=== PATIENT | female | born 1980 | race Caucasian/White ===

== ENCOUNTER 2021-07-07 16:09 | Inpatient (IN) | payer OTHER ==
[~2021-07-07] VITALS: Ht 162.6 cm; Wt 76.7 kg
[2021-07-07] MEDS ORDERED: SODIUM CHLORIDE 0.9% 1000ML BAG (SEPSIS BOLUS) IV ONE (17:00)
[2021-07-07 17:26] LABS: BASOPHILS % 0.4 % (0.0-2.0); EOSINOPHILS % 0.2 % (0.0-5.0); HEMATOCRIT. 37.1 % (36.0-48.0); HEMOGLOBIN. 12.6 g/dL (12.0-16.0); LYMPHOCYTES % 20.2 % (20.0-50.0); MEAN CORPUSCULAR HEMOGLOBIN 27.6 pg (28.0-32.0); MEAN CORPUSCULAR VOLUME 81.1 fL (81.0-99.0); MEAN PLATELET VOLUME 8.8 fl (7.4-10.4); MONOCYTES % 6.2 % (2.0-8.0); PLATELET 295 x1000/uL (130-400); RED BLOOD CELL COUNT 4.58 mill/uL (4.2-5.4)
[2021-07-07 17:33] LABS: CHLORIDE 101 mEq/L (98-107)
[2021-07-07 17:36] LABS: INR 1.1; PROTHROMBIN TIME 11.3 sec (9.6-11.0)
[2021-07-07 17:37] LABS: ETHANOL BLOOD < 10 mg/dL
[2021-07-07 17:40] LABS: HCG SCREEN NEGATIVE
[2021-07-07 17:41] LABS: C REACTIVE PROTEIN QUANT 3.9 mg/L (0.0-3.0)
[2021-07-07 17:42] LABS: CREATINE KINASE 134 IU/L (26-192)
[2021-07-07] MEDS ORDERED: KETOROLAC 15MG/ML VIAL IV NR (19:00)
[2021-07-07 19:37] LABS: CLARITY URINE CLEAR (CLEAR); COLOR URINE YELLOW (YELLOW); KETONES URINE 1+ (NEGATIVE); LEUKOCYTE ESTERASE URINE NEGATIVE (NEGATIVE); NITRITE URINE NEGATIVE (NEGATIVE); OCCULT BLOOD URINE 1+ (NEGATIVE); PH URINE 8.5 (4.5-8.0); PROTEIN URINE NEGATIVE (NEGATIVE); SPECIFIC GRAVITY URINE 1.004 (1.005-1.030); UROBILINOGEN URINE 0.2 E.U./dL (0.2-1.0)
[2021-07-07 20:00] LABS: *AMPHETAMINES SCREEN URINE NEGATIVE (NEGATIVE); *BARBITURATES SCREEN URINE NEGATIVE (NEGATIVE); *BENZODIAZEPINES SCREEN URINE NEGATIVE (NEGATIVE); *COCAINE SCREEN URINE NEGATIVE (NEGATIVE)
[2021-07-07 20:01] LABS: CANNABINOID URINE SCREEN NEGATIVE (NEGATIVE); METHADONE URINE SCREEN NEGATIVE (NEGATIVE); OPIATES URINE SCREEN NEGATIVE (NEGATIVE); PHENCYCLIDINE URINE SCREEN NEGATIVE (NEGATIVE)
[2021-07-07] MEDS ORDERED: IOHEXOL-350 100 ML BOTTLE ONE (20:17)
[2021-07-07] MEDS ORDERED: CEFTRIAXONE 1 G PREMIX 50 ML IV ONE (22:45)
[2021-07-08] MEDS ORDERED: DOCUSATE SODIUM 100MG CAPSULE PO PRN
[2021-07-08] MEDS ORDERED: HYDROCODONE/ACETAMINOPHEN 5/325MG TABLET PO PRN
[2021-07-08] MEDS ORDERED: CEFTRIAXONE 1 G PREMIX 50 ML IV SCH
[2021-07-08] MEDS ORDERED: MAGNESIUM/ALUMINUM HYDROXIDE/SIMETHICONE 30ML UDC PO PRN
[2021-07-08] MEDS ORDERED: CLONIDINE 0.1MG TABLET PO PRN
[2021-07-08] MEDS ORDERED: ACETAMINOPHEN 325MG TABLET PO PRN
[2021-07-08] MEDS ORDERED: HYDROMORPHONE HCL/PF 2MG/ML CPJ IV PRN
[2021-07-08] MEDS ORDERED: ONDANSETRON HCL 4MG/2ML INJ IV PRN
[2021-07-08] MEDS ORDERED: GUAIFENESIN 200MG/10ML SUGAR FREE UDC PO PRN
[2021-07-08] MEDS ORDERED: AZITHROMYCIN 500 MG in DEXT 5% WATER 250 ML IV SCH (01:00)
[2021-07-08 05:39] LABS: BASOPHILS % 0.4 % (0.0-2.0); EOSINOPHILS % 0.9 % (0.0-5.0); HEMATOCRIT. 35.2 % (36.0-48.0); HEMOGLOBIN. 11.6 g/dL (12.0-16.0); MEAN CORPUSCULAR HEMOGLOBIN 27.1 pg (28.0-32.0); MEAN PLATELET VOLUME 8.8 fl (7.4-10.4); MONOCYTES % 8.9 % (2.0-8.0); NEUTROPHILS % 51.8 % (40.0-76.0); PLATELET 261 x1000/uL (130-400); RED BLOOD CELL COUNT 4.29 mill/uL (4.2-5.4); RED CELL DISTRIBUTION WIDTH 15.6 % (11.6-14.6)
[2021-07-08 05:45] LABS: CHLORIDE 109 mEq/L (98-107)
[2021-07-08 05:54] LABS: LDL CHOLESTEROL 116 mg/dL (5-100)
[2021-07-08 05:56] LABS: CREATINE KINASE 112 IU/L (26-192); HDL CHOLESTEROL 36 mg/dL (40-59)
[2021-07-08] MEDS ORDERED: DEXTROSE 50% WATER 50ML SYRINGE IV PRN (08:45)
[2021-07-08] MEDS ORDERED: ASPIRIN 81MG EC TABLET PO SCH (09:00)
[2021-07-08] MEDS ORDERED: METOPROLOL TARTRATE 25MG TABLET PO SCH (09:00)
[2021-07-08] MEDS ORDERED: ENOXAPARIN 40MG/0.4ML SYR SUBCUT SCH (09:00)
[2021-07-08] MEDS: BLOOD SUGAR DIAGNOSTIC STRIP TEST SCH ×3 (11:30→17:20)
[2021-07-08] MEDS ORDERED: NALOXONE HCL 0.4MG/ML VIAL IV PRN (11:45)
[2021-07-08] MEDS: INSULIN LISPRO 100 UNITS/ML SUBCUT SCH ×2 (12:50→17:41)
[2021-07-08] MEDS ORDERED: POTASSIUM CHLORIDE 20MEQ TABLET SR PO NR (13:15)
[2021-07-08 13:40] VITALS: BP 108/77
[2021-07-08 16:00] VITALS: BP 110/70
[2021-07-08 16:44] VITALS: BP 110/70
[2021-07-08 16:57] LABS: CREATINE KINASE 126 IU/L (26-192)
[2021-07-08] MEDS ORDERED: CEFTRIAXONE 1,000 MG in DEXTROSE 5% WATER 50 ML IV SCH (23:45)
[2021-07-09] MEDS ORDERED: AZITHROMYCIN 500 MG in DEXT 5% WATER 250 ML IV SCH (01:00)
== END 2021-07-08 17:50 | disposition home or self-care (01) | DRG 313 ==
LOC: ER 16:09 → MICUSO 22:35 → EDBEDREQTM 22:38 → EDBEDREQ 22:38 → 6WST 07-08 11:37
PROVIDERS: ADMIT Hospitalist; ATTEND Hospitalist
DX: R07.89 Other chest pain (principal); E87.2 Acidosis; E11.9 Type 2 diabetes mellitus without complications; F41.9 Anxiety disorder, unspecified; R00.0 Tachycardia, unspecified; E78.5 Hyperlipidemia, unspecified
CPT/HCPCS: 36415; 71045; 71275; 80053; 80061; 80305; 80320; 81003; 82550; 82728; 82962; 83036; 83605; 83615; 83735; 83880; 84145; 84484; 84703; 85025; 85379; 85384; 86140; 86850; 86900; 87077; 93005; 93306; 93970; 99285; J0456; J0696; J1650; J1885; J7030; J7060; Q9967; G0480